=== PATIENT | male | born 2000 | race Caucasian/White ===

== ENCOUNTER 2022-07-01 02:26 | Emergency (ER) | payer OTHER ==
[~2022-07-01] VITALS: Ht 180.3 cm; Wt 68.2 kg
[2022-07-01 02:30] VITALS: TEMP 98
[2022-07-01 03:40] VITALS: BP 128/78; PULSE 76
== END 2022-07-01 03:40 | disposition home or self-care (01) ==
LOC: COL.ER 02:26
DX: S01.81XA Laceration without foreign body of other part of head, initial encounter (principal); Z28.311 Partially vaccinated for COVID-19; W01.198A Fall on same level from slipping, tripping and stumbling with subsequent striking against other object, initial encounter